=== PATIENT | male | born 1970 | race African-American/Black ===

== ENCOUNTER 2016-09-08 03:56 | Inpatient (IN) | payer OTHER ==
[~2016-09-08] VITALS: Ht 175.3 cm; Wt 52.7 kg
[~2016-09-08 03:56] MED LIST: ADVAIR 100/501 DISK IH; ADVAIR 250/501 DISK IH; ADVAIR HFA120 INHALA IH; ALBUTEROL SULF8.5 GM IH; ALBUTEROL2.5 MG/3 M IH; AMOX TR-K CLV1 EAC4 PO; AMOXICILLIN875 MG PO; ATRIPLA TABLET1 EACH PO; AZITHROMYCIN250 MG1 PO; BENADRYL50 MG PO; BENTYL10 MG PO; CEFTIN500 MG PO; DAILY VALUE1 EACH PO; DAILY VITAMIN1 EAC8 PO; DOXYCYCLINE HY100 MG PO; ENDOCET 5-3251 EACH PO; FOLIC ACID1 MG PO; HYDROCODON-ACE1 EAC7 PO; IBUPROFEN800 MG PO; IRON325 MG PO; LEVAQUIN500 MG PO; LEVAQUIN750 MG PO; LEVOFLOXACIN750 MG PO; LIDODERM 5% P1 PATCH TD; MEDROL DOSEPAK4 MG PO; MEGACE ES625 MG/5 M PO; MOTRIN800 MG PO; MUCINEX600 MG PO; NAPROSYN500 MG PO; NEURONTIN300 MG PO; OXYCODONE HCL5 MG PO; OXYCODONE-APAP1 EACH PO; PEPCID20 MG PO; PERCOCET 5/31 TABLET PO; PREDNISONE10 MG PO; PREDNISONE20 MG PO; PREDNISONE5 MG PO; PREDNISONE50 MG PO; PROAIR HFA8.5 GM IH; PROVENTIL,2.5 MG/0.5 IH; PROVENTIL,2.5 MG/3 M IH; PULMICORT FLE180 MCG IH; PULMICORT0.25 MG/1 IH; SPIRIVA RESPIMAT4 GM IH; SPIRIVA1 INHALATI IH; THERAGRAN1 TABLET PO; TRAMADOL HCL50 MG PO; TYLENOL WITH C1 EACH PO; Thiamine,Vitamin B1 PO; ULTRAM50 MG PO; VALTREX50 MG/ML PO; VENTOLIN HFA18 GM IH; VITAMIN B-1100 MG PO; ZITHROMAX Z-PA250 MG PO
[2016-09-08 04:37] LABS: HEMATOCRIT 39.9 % (38.0-50.0); MCH 30.9 PG (29.0-34.0); MCHC 33.8 G/DL (30.0-36.0); MCV 91.3 FL (86-99); PLATELET COUNT 292 K/uL (156-360); RBC DIS.WIDTH-CV 13.1 % (11.8-14.6); RBC DIS.WIDTH-SD 42.7 % (39-53); RED BLOOD COUNT 4.37 M/uL (4.00-5.50); WHITE BLOOD COUNT 27.5 K/uL (4.1-10.2)
[2016-09-08 04:47] LABS: D-DIMER ELISA < 0.15 mg/L FEU (< 0.57)
[2016-09-08 04:58] LABS: INFLUENZA A VIRAL ANTIGEN NEGATIVE; INFLUENZA B VIRAL ANTIGEN NEGATIVE
[2016-09-08 05:04] LABS: CHLORIDE 103 mEq/L (99-109); POTASSIUM 3.7 mEq/L (3.7-5.4); SODIUM 138 mEq/L (136-147)
[2016-09-08 05:06] LABS: GLUCOSE 151 mg/dL (70-99)
[2016-09-08 05:07] LABS: ANION GAP 13 MEQ/L (2-14)
[2016-09-08 05:08] LABS: TOTAL BILIRUBIN 0.7 mg/dL (0.0-1.0)
[2016-09-08 05:10] LABS: ALKALINE PHOSPHATASE 102 IU/L (3-129); GFR ESTIMATE (CALCULATED) > 59 mL/min/
[2016-09-08 05:11] LABS: UREA NITROGEN (BUN) 13 mg/dL (9-23)
[2016-09-08 05:13] LABS: LIPASE 4 U/L (1.0-51.0)
[2016-09-08 06:29] LABS: LACTATE DEHYDROGENASE 293 IU/L (20-246)
[2016-09-08 12:00] VITALS: BP 108/73
[2016-09-08 16:47] VITALS: BP 115/73
[2016-09-08 19:32] VITALS: BP 100/81
[2016-09-08 23:49] VITALS: BP 115/80
[2016-09-09 04:00] VITALS: BP 120/83
[2016-09-09 08:28] LABS: MCH 31.3 PG (29.0-34.0); MCHC 34.1 G/DL (30.0-36.0); MCV 91.6 FL (86-99); MEAN PLAT.VOLUME 10.5 uM^3 (9.0-12.4); PLATELET COUNT 251 K/uL (156-360); RBC DIS.WIDTH-CV 13.3 % (11.8-14.6); RBC DIS.WIDTH-SD 44.4 % (39-53); RED BLOOD COUNT 3.71 M/uL (4.00-5.50); WHITE BLOOD COUNT 21.6 K/uL (4.1-10.2)
[2016-09-09 08:37] VITALS: BP 123/83
[2016-09-09 08:55] LABS: ANION GAP 8 MEQ/L (2-14); CHLORIDE 106 MEQ/L (99-109); GFR ESTIMATE (CALCULATED) > 59 mL/min/; GLUCOSE 133 mg/dL (70-99); POTASSIUM 4.1 MEQ/L (3.7-5.4); SAMPLE HEMOLYSIS CHECK 0; SAMPLE ICTERIC CHECK 0; SAMPLE LIPEMIA CHECK 0; SODIUM 134 MEQ/L (136-147); UREA NITROGEN (BUN) 15 mg/dL (9-23)
[2016-09-09 12:10] VITALS: BP 106/69
[2016-09-09 16:50] VITALS: BP 107/76
[2016-09-09 20:31] VITALS: BP 123/86
[2016-09-09 23:49] VITALS: BP 114/80
[2016-09-10 05:04] VITALS: BP 136/93
[2016-09-10 07:45] VITALS: BP 111/83
[2016-09-10 11:30] VITALS: BP 126/80
[2016-09-10 19:57] VITALS: BP 127/90
[2016-09-10 23:44] VITALS: BP 124/79
[2016-09-11 08:01] VITALS: BP 130/89
[2016-09-11 10:30] LABS: EOSINOPHIL (%) 0 % (0-5); HEMATOCRIT 32.6 % (38.0-50.0); IMMATURE GRANULOCYTE (%) 0.7 % (0.0-0.7); IMMATURE GRANULOCYTE COUNT 0.1 K/uL; MCH 30.5 PG (29.0-34.0); MCHC 32.5 G/DL (30.0-36.0); MCV 93.9 FL (86-99); MEAN PLAT.VOLUME 10.5 uM^3 (9.0-12.4); MONOCYTE COUNT 0.9 K/uL (0-0.8); NEUTROPHIL (%) 81.1 % (45-76); NEUTROPHIL COUNT 8.4 K/uL (1.8-6.4); PLATELET COUNT 318 K/uL (156-360); RBC DIS.WIDTH-CV 13.6 % (11.8-14.6); RBC DIS.WIDTH-SD 46.7 % (39-53); RED BLOOD COUNT 3.47 M/uL (4.00-5.50)
[2016-09-11 10:31] LABS: WHITE BLOOD COUNT 10.4 K/uL (4.1-10.2)
[2016-09-11 12:00] VITALS: BP 133/89
[2016-09-11 15:22] VITALS: BP 130/86
[2016-09-11 19:37] VITALS: BP 126/92
[2016-09-12] VITALS: BP 121/94
[2016-09-12 04:36] VITALS: BP 132/89
[2016-09-12 07:41] LABS: INTERNAL CONTROL VALID? YES
[2016-09-12 07:53] VITALS: BP 131/82
[2016-09-12 11:46] VITALS: BP 109/70
[2016-09-12 15:43] VITALS: BP 114/71
[2016-09-12 20:11] VITALS: BP 109/76
[2016-09-13 00:44] VITALS: BP 110/75
[2016-09-13 04:21] VITALS: BP 107/79
[2016-09-13 07:32] VITALS: BP 108/66
[2016-09-13 11:45] VITALS: BP 97/64
[2016-09-13 15:26] VITALS: BP 144/86
[2016-09-13 20:00] VITALS: BP 115/81
[2016-09-14] VITALS: BP 128/78
[2016-09-14 05:15] VITALS: BP 120/83
[2016-09-14 08:21] VITALS: BP 135/74
[2016-09-14] MEDS ORDERED: PREDNISONE10 MG PO (11:04)
[2016-09-14] MEDS ORDERED: LEVAQUIN750 MG PO (11:04)
[2016-09-14] MEDS ORDERED: SPIRIVA RESPIMAT4 GM IH (11:04)
[2016-09-14] MEDS ORDERED: ENDOCET 5-3251 EACH PO (11:04)
[2016-09-15] MEDS ORDERED: ENDOCET 5-3251 EACH PO (14:08)
== END 2016-09-14 12:48 | disposition home or self-care (01) | DRG 190 ==
LOC: EME → EDBD 03:56 → EME 03:56 → EDOF 06:12 → 5SOUTH 06:12
PROVIDERS: Emergency Medicine; Internal Medicine; Nurse Practitioner Adult Health
DX: J44.0 Chronic obstructive pulmonary disease with (acute) lower respiratory infection (principal); J18.9 Pneumonia, unspecified organism; Z21 Asymptomatic human immunodeficiency virus [HIV] infection status; F31.9 Bipolar disorder, unspecified; F10.21 Alcohol dependence, in remission; Z87.891 Personal history of nicotine dependence; R09.02 Hypoxemia; J44.1 Chronic obstructive pulmonary disease with (acute) exacerbation
CPT/HCPCS: 71010; 71020; 71260; 80048; 80053; 81003; 83605; 83615; 83690; 85025; 85027; 85379; 87040; 87449; 87502; 93005; 94640; 94640 76; 94799; 99281; 99285; J0696; J1650; J1956; J2405; J7030; J7050; J7512; J7644

== ENCOUNTER 2016-10-03 03:01 | Inpatient (IN) | payer OTHER ==
[~2016-10-03] VITALS: Ht 175.3 cm; Wt 52.4 kg
[2016-10-03 03:38] LABS: HEMATOCRIT 37.4 % (38.0-50.0); MCH 31.1 PG (29.0-34.0); MCV 91.4 FL (86-99); MEAN PLAT.VOLUME 9.9 uM^3 (9.0-12.4); PLATELET COUNT 256 K/uL (156-360); RBC DIS.WIDTH-CV 13.5 % (11.8-14.6); RED BLOOD COUNT 4.09 M/uL (4.00-5.50); WHITE BLOOD COUNT 3.3 K/uL (4.1-10.2)
[2016-10-03 03:48] LABS: CHLORIDE 109 mEq/L (99-109); POTASSIUM 3.6 mEq/L (3.7-5.4); SODIUM 143 mEq/L (136-147)
[2016-10-03 03:50] LABS: GLUCOSE 91 mg/dL (70-99)
[2016-10-03 03:51] LABS: ANION GAP 11 MEQ/L (2-14)
[2016-10-03 03:54] LABS: GFR ESTIMATE (CALCULATED) > 59 mL/min/; UREA NITROGEN (BUN) 9 mg/dL (9-23)
[2016-10-03 03:59] LABS: TROP-I INTERPRETATION NEGATIVE; TROPONIN-I < 0.01 ng/mL (0.0-0.30)
[2016-10-03 04:07] LABS: CARBON DIOXIDE (BICARBONATE) 28.4 MEQ/L (20-31)
[2016-10-03] MEDS ORDERED: VENTOLIN HFA18 GM IH (07:59)
[2016-10-03 11:29] LABS: D-DIMER ELISA < 0.15 mg/L FEU (< 0.57)
[2016-10-03 13:38] LABS: TROP-I INTERPRETATION NEGATIVE; TROPONIN-I 0.01 ng/mL (0.0-0.30)
[2016-10-03 14:33] VITALS: BP 129/91
[2016-10-03 16:20] VITALS: BP 139/89
[2016-10-03 19:05] VITALS: BP 135/89
[2016-10-04] VITALS (7 sets, daily range): BP systolic 126–157; BP diastolic 55–95
[2016-10-04 03:56] LABS: EOSINOPHIL (%) 0 % (0-5); HEMATOCRIT 31.9 % (38.0-50.0); IMMATURE GRANULOCYTE (%) 0.3 % (0.0-0.7); IMMATURE GRANULOCYTE COUNT 0.2 K/uL; LYMPHOCYTE COUNT 0.5 K/uL (1.0-2.8); MCHC 33.5 G/DL (30.0-36.0); MCV 92.5 FL (86-99); MEAN PLAT.VOLUME 9.9 uM^3 (9.0-12.4); MONOCYTE (%) 5.3 % (3-12); MONOCYTE COUNT 0.3 K/uL (0-0.8); NEUTROPHIL (%) 86.3 % (45-76); NEUTROPHIL COUNT 5.2 K/uL (1.8-6.4); PLATELET COUNT 224 K/uL (156-360); RBC DIS.WIDTH-CV 13.9 % (11.8-14.6); RBC DIS.WIDTH-SD 45.5 % (39-53); RED BLOOD COUNT 3.45 M/uL (4.00-5.50)
[2016-10-04 03:58] LABS: WHITE BLOOD COUNT 6.1 K/uL (4.1-10.2)
[2016-10-04 13:10] LABS: INFLUENZA A VIRAL ANTIGEN NEGATIVE; INFLUENZA B VIRAL ANTIGEN NEGATIVE
[2016-10-05 00:15] VITALS: BP 128/88
[2016-10-05 03:14] LABS: METH RESISTANT S AUREUS PCR NEGATIVE (NEGATIVE)
[2016-10-05 03:23] LABS: PROBE CHECK PASS; SPECIMEN PROCESSING CONTROL PASS
[2016-10-05 05:19] VITALS: BP 142/84
[2016-10-05 07:55] LABS: INTERNAL CONTROL VALID? YES
[2016-10-05 08:06] VITALS: BP 137/98
[2016-10-05 11:30] VITALS: BP 122/82
[2016-10-05 16:30] VITALS: BP 137/92
[2016-10-06 00:13] VITALS: BP 131/84
[2016-10-06 05:30] LABS: EOSINOPHIL (%) 3.8 % (0-5); EOSINOPHIL COUNT 0.3 K/uL (0-0.3); HEMATOCRIT 34.6 % (38.0-50.0); IMMATURE GRANULOCYTE (%) 0.3 % (0.0-0.7); LYMPHOCYTE COUNT 1.9 K/uL (1.0-2.8); MCH 30.2 PG (29.0-34.0); MCHC 32.4 G/DL (30.0-36.0); MCV 93.3 FL (86-99); MEAN PLAT.VOLUME 10.7 uM^3 (9.0-12.4); MONOCYTE (%) 8.9 % (3-12); MONOCYTE COUNT 0.6 K/uL (0-0.8); NEUTROPHIL (%) 59.1 % (45-76); NEUTROPHIL COUNT 4.1 K/uL (1.8-6.4); PLATELET COUNT 254 K/uL (156-360); RBC DIS.WIDTH-CV 14.5 % (11.8-14.6); RBC DIS.WIDTH-SD 48.9 % (39-53); RED BLOOD COUNT 3.71 M/uL (4.00-5.50); WHITE BLOOD COUNT 6.9 K/uL (4.1-10.2)
[2016-10-06 05:55] LABS: ANION GAP 9 MEQ/L (2-14); CHLORIDE 101 MEQ/L (99-109); GFR ESTIMATE (CALCULATED) > 59 mL/min/; GLUCOSE 109 mg/dL (70-99); POTASSIUM 3.8 MEQ/L (3.7-5.4); SAMPLE HEMOLYSIS CHECK 0; SAMPLE ICTERIC CHECK 0; SAMPLE LIPEMIA CHECK 0; SODIUM 137 MEQ/L (136-147); UREA NITROGEN (BUN) 16 mg/dL (9-23)
[2016-10-06 07:56] VITALS: BP 114/70
[2016-10-06] MEDS ORDERED: OMEPRAZOLE20 MG PO (13:41)
[2016-10-06] MEDS ORDERED: PREDNISONE10 MG PO (13:41)
[2016-10-06] MEDS ORDERED: LEVAQUIN750 MG PO (13:46)
[2016-10-06] MEDS ORDERED: TYLENOL REGULA325 MG PO (15:05)
[2016-10-06] MEDS ORDERED: DOCUSATE SODIU100 MG PO (15:05)
[2016-10-06] MEDS ORDERED: OXYCODONE HCL5 MG PO (15:05)
[2016-10-06 15:50] VITALS: BP 119/81
[2016-10-07 20:54] LABS: HIV RNA QUANT LOG10 RESULT < 1.30 Log(10) (<1.30); HIV RNA QUANT VIRAL LOAD < 20 copy/mL (<20)
== END 2016-10-06 17:19 | disposition home or self-care (01) | DRG 190 ==
LOC: EME 03:01 → EDOF 07:38 → 5WEST 07:38 → EDOF 07:38 → 5WEST 13:59 → 3EAST 10-04 12:43 → 5WEST 10-04 12:43 → 3EAST 10-04 18:13
PROVIDERS: Emergency Medicine; Internal Medicine; Internal Medicine Infectious Disease; Nurse Practitioner Adult Health; Physician Assistant Medical; Student in an Organized Health Care Education/Training Program
DX: J44.0 Chronic obstructive pulmonary disease with (acute) lower respiratory infection (principal); J18.9 Pneumonia, unspecified organism; J44.1 Chronic obstructive pulmonary disease with (acute) exacerbation; Z21 Asymptomatic human immunodeficiency virus [HIV] infection status; F31.9 Bipolar disorder, unspecified; F10.21 Alcohol dependence, in remission; Z87.891 Personal history of nicotine dependence; R09.02 Hypoxemia
CPT/HCPCS: 71020; 80048; 82803; 83605; 83615; 83880; 84484; 85025; 85027; 85379; 87040; 87070; 87205; 87449; 87502; 87536; 87641; 93005; 94640; 94640 76; 94760; 94799; 99202; 99281; 99285; G0378; J1650; J1885; J1956; J2543; J2930; J3370; J7030; J7050; J7120; J7512

== ENCOUNTER 2016-10-25 11:04 | Inpatient (IN) | payer OTHER ==
[~2016-10-25] VITALS: Ht 175.3 cm; Wt 51.8 kg
[~2016-10-25 11:04] MED LIST changes: +DOCUSATE SODIU100 MG PO; +OMEPRAZOLE20 MG PO; +TYLENOL REGULA325 MG PO
[2016-10-25 11:41] LABS: HEMATOCRIT 38.9 % (38.0-50.0); MCH 31.2 PG (29.0-34.0); MCHC 33.2 G/DL (30.0-36.0); MCV 94.2 FL (86-99); MEAN PLAT.VOLUME 9.5 uM^3 (9.0-12.4); PLATELET COUNT 324 K/uL (156-360); RBC DIS.WIDTH-CV 14.7 % (11.8-14.6); RBC DIS.WIDTH-SD 47.6 % (39-53); RED BLOOD COUNT 4.13 M/uL (4.00-5.50); WHITE BLOOD COUNT 5.6 K/uL (4.1-10.2)
[2016-10-25 11:53] LABS: CHLORIDE 105 mEq/L (99-109); POTASSIUM 3.6 mEq/L (3.7-5.4); SODIUM 139 mEq/L (136-147)
[2016-10-25 11:55] LABS: GLUCOSE 101 mg/dL (70-99)
[2016-10-25 11:57] LABS: ANION GAP 11 MEQ/L (2-14)
[2016-10-25 11:59] LABS: GFR ESTIMATE (CALCULATED) > 59 mL/min/
[2016-10-25 12:00] LABS: UREA NITROGEN (BUN) 9 mg/dL (9-23)
[2016-10-25 12:03] LABS: TROP-I INTERPRETATION NEGATIVE; TROPONIN-I < 0.01 ng/mL (0.0-0.30)
[2016-10-25 12:23] LABS: BASE EXCESS -3.4 mEq/L (-3 to +3); CARBOXY HGB 1.4 % (0-5); METHEMOGLOBIN 1.3 % (0-1.5); pH 7.32 (7.35-7.45)
[2016-10-25 12:24] LABS: BICARBONATE 22.7 mEq/L (22-26); COMMENTS - BLOOD GASES NEG A+C+; DEVICE VENT; FI02 100 %; O2 FLOW 60 L/MIN; PCO2 44 mm Hg (35-45); PEEP 6 CM/H20; PO2 519 mm Hg (80-100); PRES. SUPPORT 14 CM/H2O; SITE LR; TOTAL RESP RATE 26 resp/min
[2016-10-25 17:04] VITALS: BP 133/87
[2016-10-25 20:26] LABS: TROP-I INTERPRETATION NEGATIVE; TROPONIN-I < 0.01 ng/mL (0.0-0.30)
[2016-10-26 00:03] VITALS: BP 122/83
[2016-10-26 07:33] LABS: ANION GAP 11 MEQ/L (2-14); CHLORIDE 103 MEQ/L (99-109); GFR ESTIMATE (CALCULATED) > 59 mL/min/; GLUCOSE 119 mg/dL (70-99); SAMPLE HEMOLYSIS CHECK 0; SAMPLE ICTERIC CHECK 0; SAMPLE LIPEMIA CHECK 0; SODIUM 135 MEQ/L (136-147); UREA NITROGEN (BUN) 12 mg/dL (9-23)
[2016-10-26 07:35] LABS: POTASSIUM 4.4 MEQ/L (3.7-5.4)
[2016-10-26 08:14] VITALS: BP 150/97
[2016-10-26 15:51] VITALS: BP 125/76
[2016-10-27 00:02] VITALS: BP 131/81
[2016-10-27 01:13] LABS: C DIFF TOXIN NEGATIVE (NEGATIVE)
[2016-10-27 01:32] LABS: PROBE CHECK PASS; SPECIMEN PROCESSING CONTROL PASS
[2016-10-27 07:31] VITALS: BP 130/81
[2016-10-27] MEDS ORDERED: PREDNISONE10 MG PO (09:59)
[2016-10-27] MEDS ORDERED: TRAMADOL HCL50 MG PO (09:59)
== END 2016-10-27 12:36 | disposition home or self-care (01) | DRG 192 ==
LOC: EME 11:04 → EDOF 14:07 → 5SOUTH 16:01 → EDOF 16:01 → 5SOUTH 16:44
PROVIDERS: Emergency Medicine; Hospitalist; Internal Medicine
DX: J44.1 Chronic obstructive pulmonary disease with (acute) exacerbation (principal); Z87.891 Personal history of nicotine dependence; Z21 Asymptomatic human immunodeficiency virus [HIV] infection status; F32.9 Major depressive disorder, single episode, unspecified
CPT/HCPCS: 36600; 71010; 80048; 82803; 84484; 85027; 87070; 87205; 87493; 93005; 94002; 94640; 94640 76; 94760; 94799; 99202; 99281; 99285; J0696; J1650; J1720; J2930; J3010; J7030; J7050; J7512; J7644

== ENCOUNTER 2016-11-24 19:10 | Emergency (ER) | payer OTHER ==
[~2016-11-24] VITALS: Ht 175.3 cm; Wt 54.0 kg
[2016-11-24 19:37] LABS: MCHC 33.4 G/DL (30.0-36.0); MCV 92.8 FL (86-99); PLATELET COUNT 341 K/uL (156-360); RBC DIS.WIDTH-CV 14.1 % (11.8-14.6); RBC DIS.WIDTH-SD 48.6 % (39-53); RED BLOOD COUNT 4.42 M/uL (4.00-5.50); WHITE BLOOD COUNT 5.3 K/uL (4.1-10.2)
[2016-11-24 19:50] LABS: CHLORIDE 107 mEq/L (99-109); POTASSIUM 4.6 mEq/L (3.7-5.4); SODIUM 142 mEq/L (136-147)
[2016-11-24 19:52] LABS: GLUCOSE 80 mg/dL (70-99)
[2016-11-24 19:53] LABS: ANION GAP 12 MEQ/L (2-14)
[2016-11-24 19:55] LABS: SERUM ETHYL ALCOHOL 310 mg/dL
[2016-11-24 19:57] LABS: UREA NITROGEN (BUN) 16 mg/dL (9-23)
[2016-11-24 20:20] LABS: GFR ESTIMATE (CALCULATED) > 59 mL/min/
[2016-11-24 20:26] LABS: ABS NEUTROPHIL COUNT 3.3; EOSINOPHIL ABS CT 0.1
[2016-11-24] MEDS ORDERED: VENTOLIN HFA18 GM IH (21:45)
[2016-11-24] MEDS ORDERED: PREDNISONE20 MG PO (21:45)
[2016-11-24] MEDS ORDERED: ZITHROMAX Z-PA250 MG PO (21:45)
[2016-11-24 22:13] VITALS: BP 108/73
== END 2016-11-24 22:31 | disposition home or self-care (01) ==
LOC: EME → EDBD 19:10 → EME 19:10
DX: F10.129 Alcohol abuse with intoxication, unspecified (principal); J44.1 Chronic obstructive pulmonary disease with (acute) exacerbation; J45.909 Unspecified asthma, uncomplicated; B20 Human immunodeficiency virus [HIV] disease; Y90.8 Blood alcohol level of 240 mg/100 ml or more; Z87.891 Personal history of nicotine dependence
CPT/HCPCS: 71020; 80048; 85007; 85027; 93005; 94640; 99281; 99285; G0480; J2930; J7644

== ENCOUNTER 2017-02-09 10:56 | Observation (INO) | payer OTHER ==
[~2017-02-09] VITALS: Ht 175.3 cm; Wt 54.9 kg
[2017-02-09 11:31] LABS: EOSINOPHIL (%) 4.2 % (0-5); EOSINOPHIL COUNT 0.2 K/uL (0-0.3); HEMATOCRIT 41.5 % (38.0-50.0); IMMATURE GRANULOCYTE (%) 0.2 % (0.0-0.7); INSTRUMENT ABS NEUTROPHIL CT 3.1 K/uL; LYMPHOCYTE COUNT 1.3 K/uL (1.0-2.8); MCH 31.9 PG (29.0-34.0); MCHC 32.3 G/DL (30.0-36.0); MCV 98.8 FL (86-99); MEAN PLAT.VOLUME 9.6 uM^3 (9.0-12.4); MONOCYTE (%) 10.5 % (3-12); MONOCYTE COUNT 0.6 K/uL (0-0.8); NEUTROPHIL COUNT 3.1 K/uL (1.8-6.4); PLATELET COUNT 334 K/uL (156-360); RBC DIS.WIDTH-CV 14.6 % (11.8-14.6); RBC DIS.WIDTH-SD 53.2 % (39-53); WHITE BLOOD COUNT 5.2 K/uL (4.1-10.2)
[2017-02-09 11:41] LABS: CHLORIDE 104 mEq/L (99-109); POTASSIUM 3.8 mEq/L (3.7-5.4); SODIUM 139 mEq/L (136-147)
[2017-02-09 11:43] LABS: GLUCOSE 90 mg/dL (70-99)
[2017-02-09 11:45] LABS: ANION GAP 8 MEQ/L (2-14)
[2017-02-09 11:47] LABS: GFR ESTIMATE (CALCULATED) > 59 mL/min/
[2017-02-09 11:48] LABS: UREA NITROGEN (BUN) 15 mg/dL (9-23)
[2017-02-09 13:06] LABS: TROP-I INTERPRETATION NEGATIVE; TROPONIN-I < 0.01 ng/mL (0.0-0.30)
[2017-02-09] MEDS ORDERED: DUONEB 2.5-0.5 M3 ML IPPB (13:18)
[2017-02-09 19:25] LABS: TROP-I INTERPRETATION NEGATIVE; TROPONIN-I < 0.01 ng/mL (0.0-0.30)
[2017-02-09 19:32] VITALS: BP 130/88
[2017-02-09 23:06] VITALS: BP 126/87
[2017-02-10 01:31] LABS: TROP-I INTERPRETATION NEGATIVE; TROPONIN-I < 0.01 ng/mL (0.0-0.30)
[2017-02-10 03:29] VITALS: BP 132/71
[2017-02-10 06:46] VITALS: BP 142/80
[2017-02-10] MEDS ORDERED: PREDNISONE10 MG PO (09:46)
[2017-02-10] MEDS ORDERED: PERCOCET 5/31 TABLET PO (09:46)
[2017-02-10] MEDS ORDERED: ADVAIR HFA120 INHALA IH (09:46)
[2017-02-10 10:41] VITALS: BP 127/81
== END 2017-02-10 12:50 | disposition home or self-care (01) ==
LOC: EME 10:56 → EDOF 12:26 → 5EAST 19:16
PROVIDERS: Emergency Medicine; Internal Medicine
DX: J44.1 Chronic obstructive pulmonary disease with (acute) exacerbation (principal); B20 Human immunodeficiency virus [HIV] disease; Z87.891 Personal history of nicotine dependence; F31.9 Bipolar disorder, unspecified; F10.21 Alcohol dependence, in remission
CPT/HCPCS: 71010; 80048; 84484; 85025; 94640; 94640 76; 94799; 99202; 99281; 99285; G0378; J0696; J1650; J2270; J2930; J7050; J7644

== ENCOUNTER 2017-02-11 21:59 | Inpatient (IN) | payer OTHER ==
[~2017-02-11] VITALS: Ht 175.3 cm; Wt 49.7 kg
[~2017-02-11 21:59] MED LIST changes: +DUONEB 2.5-0.5 M3 ML IPPB
[2017-02-11 22:42] LABS: EOSINOPHIL (%) 6.3 % (0-5); EOSINOPHIL COUNT 0.3 K/uL (0-0.3); IMMATURE GRANULOCYTE (%) 0.2 % (0.0-0.7); MCH 32.4 PG (29.0-34.0); MCHC 32.8 G/DL (30.0-36.0); MCV 98.9 FL (86-99); MEAN PLAT.VOLUME 9.7 uM^3 (9.0-12.4); MONOCYTE (%) 8.6 % (3-12); MONOCYTE COUNT 0.4 K/uL (0-0.8); PLATELET COUNT 373 K/uL (156-360); RBC DIS.WIDTH-CV 14.6 % (11.8-14.6); RED BLOOD COUNT 4.35 M/uL (4.00-5.50); WHITE BLOOD COUNT 4.8 K/uL (4.1-10.2)
[2017-02-11 22:53] LABS: CHLORIDE 105 mEq/L (99-109); POTASSIUM 3.7 mEq/L (3.7-5.4); SODIUM 144 mEq/L (136-147)
[2017-02-11 22:55] LABS: GLUCOSE 100 mg/dL (70-99)
[2017-02-11 22:56] LABS: ANION GAP 13 MEQ/L (2-14)
[2017-02-11 22:58] LABS: GFR ESTIMATE (CALCULATED) > 59 mL/min/
[2017-02-11 22:59] LABS: UREA NITROGEN (BUN) 18 mg/dL (9-23)
[2017-02-11 23:01] LABS: D-DIMER ELISA < 0.15 mg/L FEU (< 0.57)
[2017-02-11 23:07] LABS: TROP-I INTERPRETATION NEGATIVE; TROPONIN-I < 0.01 ng/mL (0.0-0.30)
[2017-02-12 06:06] LABS: HEMATOCRIT 39.3 % (38.0-50.0); MCH 32.2 PG (29.0-34.0); MCHC 32.6 G/DL (30.0-36.0); MEAN PLAT.VOLUME 9.7 uM^3 (9.0-12.4); PLATELET COUNT 358 K/uL (156-360); RBC DIS.WIDTH-CV 14.6 % (11.8-14.6); RBC DIS.WIDTH-SD 53.4 % (39-53); RED BLOOD COUNT 3.97 M/uL (4.00-5.50); WHITE BLOOD COUNT 7.7 K/uL (4.1-10.2)
[2017-02-12 06:15] LABS: CHLORIDE 105 mEq/L (99-109); POTASSIUM 4.4 mEq/L (3.7-5.4); SODIUM 140 mEq/L (136-147)
[2017-02-12 06:16] LABS: GLUCOSE 124 mg/dL (70-99)
[2017-02-12 06:18] LABS: ANION GAP 9 MEQ/L (2-14)
[2017-02-12 06:20] LABS: GFR ESTIMATE (CALCULATED) > 59 mL/min/
[2017-02-12 06:21] LABS: UREA NITROGEN (BUN) 20 mg/dL (9-23)
[2017-02-12 12:09] VITALS: BP 90/75
[2017-02-12 15:10] VITALS: BP 104/71
[2017-02-12 16:17] VITALS: BP 141/82
[2017-02-12 19:58] VITALS: BP 120/79
[2017-02-13 04:56] VITALS: BP 126/75
[2017-02-13 07:58] VITALS: BP 121/82
[2017-02-13 12:21] VITALS: BP 121/88
[2017-02-13 15:50] VITALS: BP 129/88
[2017-02-13 20:15] VITALS: BP 135/79
[2017-02-14 00:29] VITALS: BP 121/80
[2017-02-14 04:28] VITALS: BP 110/79
[2017-02-14 08:12] VITALS: BP 131/87
[2017-02-14] MEDS ORDERED: ALPRAZOLAM0.5 MG PO (11:17)
[2017-02-14] MEDS ORDERED: PREDNISONE5 MG PO (11:17)
[2017-02-14] MEDS ORDERED: TRAMADOL HCL50 MG PO (11:17)
[2017-02-14] MEDS ORDERED: ADVAIR HFA120 INHALA IH (11:17)
[2017-02-14 11:40] VITALS: BP 125/89
== END 2017-02-14 13:27 | disposition home or self-care (01) | DRG 190 ==
LOC: EME 21:59 → 5SOUTH 02-12 01:28 → EDOF 02-12 01:28 → 5SOUTH 02-12 15:51
PROVIDERS: Emergency Medicine; Hospitalist
DX: J44.1 Chronic obstructive pulmonary disease with (acute) exacerbation (principal); J96.01 Acute respiratory failure with hypoxia; J44.0 Chronic obstructive pulmonary disease with (acute) lower respiratory infection; Z21 Asymptomatic human immunodeficiency virus [HIV] infection status; F41.9 Anxiety disorder, unspecified; Z80.3 Family history of malignant neoplasm of breast; Z80.6 Family history of leukemia; Z87.891 Personal history of nicotine dependence; J20.9 Acute bronchitis, unspecified
CPT/HCPCS: 71010; 80048; 84484; 85025; 85027; 85379; 93005; 94640; 94640 76; 94644; 94799; 99202; 99281; 99285; J1100; J1650; J2060; J2930; J3475; J7644

== ENCOUNTER 2017-02-15 23:40 | Inpatient (IN) | payer OTHER ==
[~2017-02-15] VITALS: Ht 175.3 cm; Wt 78.0 kg
[~2017-02-15 23:40] MED LIST changes: +ALPRAZOLAM0.5 MG PO
[2017-02-16 00:10] LABS: BASE EXCESS 4.3 mEq/L (-3 to +3); BICARBONATE 31.8 mEq/L (22-26); CARBOXY HGB 1.6 % (0-5); METHEMOGLOBIN 1.2 % (0-1.5); PCO2 59 mm Hg (35-45); PO2 100 mm Hg (80-100); pH 7.34 (7.35-7.45)
[2017-02-16 00:11] LABS: COMMENTS - BLOOD GASES C+; DEVICE NEBULIZER; O2 FLOW 8 L/MIN; SITE RR; TOTAL RESP RATE 20 resp/min
[2017-02-16 02:30] VITALS: BP 130/85
[2017-02-16 02:47] LABS: EOSINOPHIL (%) 0.5 % (0-5); EOSINOPHIL COUNT 0.1 K/uL (0-0.3); HEMATOCRIT 41.5 % (38.0-50.0); IMMATURE GRANULOCYTE (%) 0.8 % (0.0-0.7); IMMATURE GRANULOCYTE COUNT 0.1 K/uL; LYMPHOCYTE COUNT 0.5 K/uL (1.0-2.8); MCH 32.4 PG (29.0-34.0); MCV 98.1 FL (86-99); MEAN PLAT.VOLUME 9.8 uM^3 (9.0-12.4); MONOCYTE (%) 3.4 % (3-12); MONOCYTE COUNT 0.3 K/uL (0-0.8); NEUTROPHIL (%) 90.5 % (45-76); PLATELET COUNT 368 K/uL (156-360); RBC DIS.WIDTH-CV 14.6 % (11.8-14.6); RBC DIS.WIDTH-SD 53.1 % (39-53); RED BLOOD COUNT 4.23 M/uL (4.00-5.50)
[2017-02-16 03:01] LABS: CHLORIDE 103 mEq/L (99-109); POTASSIUM 4.3 mEq/L (3.7-5.4); SODIUM 140 mEq/L (136-147)
[2017-02-16 03:04] LABS: GLUCOSE 101 mg/dL (70-99)
[2017-02-16 03:05] LABS: ANION GAP 11 MEQ/L (2-14); TOTAL BILIRUBIN 0.2 mg/dL (0.0-1.0)
[2017-02-16 03:07] LABS: ALKALINE PHOSPHATASE 82 IU/L (3-129); GFR ESTIMATE (CALCULATED) > 59 mL/min/
[2017-02-16 03:08] LABS: UREA NITROGEN (BUN) 24 mg/dL (9-23)
[2017-02-16 03:28] LABS: D-DIMER ELISA < 0.15 mg/L FEU (< 0.57)
[2017-02-16 09:01] VITALS: BP 123/91
[2017-02-16 11:05] VITALS: BP 127/69
[2017-02-16 16:14] VITALS: BP 129/89
[2017-02-16 20:12] VITALS: BP 136/93
[2017-02-17] VITALS (7 sets, daily range): BP systolic 117–142; BP diastolic 71–91
[2017-02-18 07:51] VITALS: BP 110/79
[2017-02-18] MEDS ORDERED: PREDNISONE20 MG PO (10:46)
[2017-02-18] MEDS ORDERED: SPIRIVA RESPIMAT4 GM IH (10:46)
[2017-02-18] MEDS ORDERED: ADVAIR HFA120 INHALA IH (10:46)
[2017-02-18 11:01] VITALS: BP 119/89
== END 2017-02-18 14:03 | disposition home or self-care (01) | DRG 190 ==
LOC: EME → EDBD 23:40 → EDOF 02-16 01:30 → 5SOUTH 02-16 02:11
PROVIDERS: Emergency Medicine; Hospitalist
DX: J44.1 Chronic obstructive pulmonary disease with (acute) exacerbation (principal); J96.22 Acute and chronic respiratory failure with hypercapnia; J96.21 Acute and chronic respiratory failure with hypoxia; E87.2 Acidosis; J44.0 Chronic obstructive pulmonary disease with (acute) lower respiratory infection; Z21 Asymptomatic human immunodeficiency virus [HIV] infection status; J20.9 Acute bronchitis, unspecified; Z91.14 Patient's other noncompliance with medication regimen; Z87.891 Personal history of nicotine dependence
CPT/HCPCS: 36600; 71010; 80053; 82803; 85025; 85379; 87070; 87205; 94640; 94640 76; 94799; 99202; 99281; 99284; J1100; J1644; J1650; J2930; J7512; J7644